=== PATIENT | female | born 1955 | race Caucasian/White ===

== ENCOUNTER → 2018-10-05 15:26 | Outpatient (CLI) | payer MEDICARE, BC, SELFPAY ==
--- NOTE | 2018-10-05 15:28 | DI.RAD.S_ITS ---
PROCEDURE: XR ANKLE RT MIN 3V INDICATIONS: ankle pain TECHNIQUE: 3 views of the ankle were acquired. COMPARISON: None. FINDINGS: Bones: Subtle cortical irregularity involving the tip of lateral malleolus is seen, which may represent age-indeterminate avulsion injury. No other fracture or dislocation is seen. Ankle mortise is normally aligned. No suspicious bony lesions. Well-defined plantar calcaneal enthesophyte is seen. Soft tissues: There is soft tissue swelling over lateral malleolus No tibiotalar joint effusion. Achilles tendon appears normal. IMPRESSION: Lateral ankle soft tissue swelling and age-indeterminate avulsion injury involving tip of lateral malleolus. No other fracture or dislocation. Dictated by: Eliud Chicas M.D. on 10/05/2018 at 15:47 Approved by: Eliud Chicas M.D. on 10/05/2018 at 15:49
== END ==
PROVIDERS: Visit Provider Physician Assistant
DX: M25.571 Pain in right ankle and joints of right foot (principal); M79.89 Other specified soft tissue disorders; S99.811A Other specified injuries of right ankle, initial encounter
CPT/HCPCS: 73610

== ENCOUNTER 2019-01-16 09:45 | Outpatient (RCR) | payer MEDICARE, BC, SELFPAY ==
--- NOTE | 2019-01-01 15:25 | PT.OIE ---
Current Diagnoses Unspecified osteoarthritis, unspecified site (01/01/19) Unsteadiness on feet (01/01/19) Other fracture of right lower leg, initial encounter for closed fracture (01/01/19) Sprain of unspecified ligament of right ankle, initial encounter (01/01/19) Past Medical History (Last Updated 12/10/18 @ 18:31 by Emeli Roman) Abnormal Pap smear of cervix (Chronic ~1975) Ankle pain (Chronic) Hearing loss (Chronic ~2011) Hip pain (Chronic) Knee pain (Chronic) Retinoschisis (Chronic ~2007) Tinnitus (Chronic) Chicken pox (Resolved ~1957) Measles (Resolved ~1957) Past Surgical History (Last Updated 12/10/18 @ 18:31 by Emeli Roman) Anesthesia (Resolved) History of section (Resolved ~1986) History of strabismus surgery (Resolved ~1957) Status post laparoscopic surgery (Resolved ~2012) Provider Visit Care Team Role Provider Type Shae Mckeon DO Attending Provider Physician Primary Care Provider Specialty: Family Practice Address: [address] [place] [address] Email: [email or web address] Physical Therapy Initial Evaluation PT-OP-A Visit Information Start: 12/28/18 16:47 Freq: Status: Active Protocol: Document 01/01/19 09:51 LRN (Rec: 01/01/19 10:25 LRN [id number]) Out-Patient Physical Therapy Visit Information Visit Information Visit Type Initial Evaluation Visit Start Time 09:51 Visit Stop Time 10:38 Total Visit Minutes 47 Visit Number 1 Number of SCREW DOWN Visits 0 Evaluation Information Evaluation Date 01/01/19 PT-OP-B Current Condition Start: 12/28/18 16:47 Freq: Status: Active Protocol: Document 01/01/19 09:51 LRN (Rec: 01/01/19 10:25 LRN [id number]) Current Condition History of Current Condition Onset Date 3 months ago Current Complaints Constant pain in the R lateral ankle joint, superior, inferior & anterior. History of Current Condition Fx'd R ankle 1999 and severely sprained the other ankle in ~ 2004. Her current condition occurred in Sep when she walked into a pothole wearing clogs. Her ankle hurt and swelled, but she waited a couple weeks before going to urgent care. X-rays taken was inconclusive as to what was the old injury and what was the new injury. Currently her pain is constant in the lateral R ankle anterior and inferior to the ankle joint. Prior Treatments and Tests Physical therapy, returned to baseline. Doing walking, pilates, yoga. Some knees and hips hurt limits activity. Developmental History Developmental History Moved from [facility] ([place], [place]) recently. Treatment Goals Patient/Caregiver Goals Pt goal is be able to return to baseline of: walking 10,000 steps a day (4-5 miles) without being in a lot of pain later. And to be able to manage the pain and do more biking (1-2 miles). Prior Functional Status Baseline Function- ADL's Independent Baseline Function- Mobility Independent Baseline Function- Gait 2 mile walks, [place]. Baseline Function- Recreation/Hobbies Biking. Current Functional Impairments (Reported) Functional Limitations- ADL's Feeling unsteady getting in/ out of tub. Functional Limitations- Mobility/Gait Limited in walking tolerance. Functional Limitations- Recreation/ Limited in walking for Hobbies exercise, biking. Personal Factors Other Personal Factors That May Effect R rib pain with turning wrong, Therapy/Recovery and bilateral knee pain from arthritis. PT-OP-C Subjective Start: 12/28/18 16:47 Freq: Status: Active Protocol: Document 01/01/19 09:51 LRN (Rec: 01/01/19 15:36 LRN [id number]) Patient Questionnaires Foot & Ankle Ability Measure- ADL and Sports FAAM-ADL Score 77 FAAM-ADL Impairment 1 to 19% Impaired (Score 67-83 ) Lower Extremity Functional Scale LEFS Score 67 LEFS Impairment 1 to 19% Impaired (Score 63-79 ) OP-PT Pain Assessment Location Bilateral Knee Pain Location Details Anterior knees Intensity 5 Scale Used Numeric (1 - 10) Right Upper Lateral Ankle Pain Location Details Superior aspect of R lateral malleoli Intensity 4 Scale Used Numeric (1 - 10) Description Aching Frequency Constant Pain Aggravating Factors Exercise Walking Pain Alleviating Factors Rest PT-OP-D Balance Start: 12/28/18 16:47 Freq: Status: Active Protocol: Document 01/01/19 09:51 LRN (Rec: 01/01/19 15:36 LRN [id number]) Balance Tests Single Limb Standing Single Limb- Right 15 Single Limb- Left 7 Tandem Tandem Standing 36 sec's w/L foot behind, 38 sec's w/R foot behind PT-OP-E Functional Tests Start: 12/28/18 16:47 Freq: Status: Active Protocol: Document 01/01/19 09:51 LRN (Rec: 01/01/19 15:36 LRN [id number]) Functional Tests Timed Up and Go (TUG) Score 9 Comments No instability noted. TUG Impairment Rating 0% Impaired (Score 10) PT-OP-F Manual Assessment Start: 12/28/18 16:47 Freq: Status: Active Protocol: Document 01/01/19 09:51 LRN (Rec: 01/01/19 15:36 LRN [id number]) Manual Assessments Soft Tissue Assessment Soft Tissue Mobility Assessment Ankles: Swelling in the lateral R ankle inferiorly and anteriorly. Joint Mobility Assessment Joint Mobility Assessment Ankles: Normal PT-OP-J Posture/Palpation/Skin Start: 12/28/18 16:47 Freq: Status: Active Protocol: Document 01/01/19 09:51 LRN (Rec: 01/01/19 15:36 LRN [id number]) Posture Evaluation Comments Posture Comments Standing: Decreased plantar arch on R with RLE held in mild ER. Valgus of knee bilaterally. R shoulder and scapular are low. Head is tilted left. Increased Lordosis and Dowagers hump. Palpation Assessment Location R ankle Palpation Location Lateral R ankle Palpation Findings Edema Tenderness Palpation Details Tenderness in the Anterior Talofibular ligament and Tibiofibular ligament. PT-OP-K Range of Motion Start: 12/28/18 16:47 Freq: Status: Active Protocol: Document 01/01/19 09:51 LRN (Rec: 01/01/19 15:36 LRN [id number]) Knee Goniometric Range of Motion Knee Measured in Degrees Right Knee ROM WFL Yes Patient Position Sitting Left Knee ROM WFL Yes Patient Position Sitting Ankle and Foot Goniometric Range of Motion Ankle and Foot Measured in Degrees Right Active Testing Position Supine Dorsiflexion with Knee Extended 5 Plantarflexion 48 Inversion 31 Eversion 12 Left Active Ankle/Foot ROM WFL Yes Dorsiflexion with Knee Extended 7 Plantarflexion 52 Inversion 40 Eversion 12 PT-OP-M Strength Start: 12/28/18 16:47 Freq: Status: Active Protocol: Document 01/01/19 09:51 LRN (Rec: 01/01/19 15:36 LRN [id number]) Knee Strength Knee Manual Muscle Testing Right Reason Not Measured WFL Left Reason Not Measured WFL Ankle/Foot Strength Ankle and Foot Manual Muscle Testing Right Reason Not Measured WFL Comments Toe strength is WNL. Left Reason Not Measured WFL Comments Toe strength is WNL. PT-OP-Q Treatments Start: 12/28/18 16:47 Freq: Status: Active Protocol: Document 01/01/19 09:51 LRN (Rec: 01/01/19 15:36 LRN [id number]) Self-Care/Home Management Treatment Education Patient Education Home Exercise Program Other Education Discussed edema management with use of compression and cold packs. Activities Self-Care/Home Management Activities Issued and briefly reviewed HEP: ankle ex's of PF/DF T- Band ex's, IV/EV with ball ex' s. PT-OP-T Assessment and Plan Start: 12/28/18 16:47 Freq: Status: Active Protocol: Document 01/01/19 09:51 LRN (Rec: 01/01/19 15:36 LRN [id number]) Physical Therapy Assessment Rehab Potential Rehabilitation Potential Excellent Evaluation Complexity Number of Personal Factors/Comorbidities 1-2 Number of Body Systems Impaired 3 Clinical Presentation at Evaluation Stable Impairments Impairments Activity Tolerance Edema Pain ROM Soft Tissue Mobility Other Concerns Age Related Concerns Recent move to area. Goals Three Impairment Decreased balance (SLS: 15 sec 's left, 7 sec's right) Radiator Core Tester Goal (LTG) Pt will be able to get in/out of the bathtub without fear of falling. LTG Duration 03/05/19 Two Impairment Pain w/walking, limiting baseline of walking 4-5 miles. Short Term Goal (STG) Pt will be able to walk without pain. STG Duration 02/02/19 Custodial Goal (LTG) Pt will be able to walk the 2 -3 miles and educated in progression to return to baseline (3-4 miles walking) activity level. LTG Duration 03/05/19 One Impairment Lacks Self care program. Custodial Goal (LTG) Pt will be independent in a self care HEP. LTG Duration 4/29/19 Assessment Summary Assessment Pt presents with soft tissue and mechanical dysfunction of the R ankle due to swelling, probable ligament sprain of the Anterior Talofibular Ligament and Anterior Tibiofibular Ligament and possible avulsion injury to the tip of the lateral malleolus per X-ray. Her bilateral knee pain may be arthritic in nature with pain with mobility. Strengthening of the R ankle and bilateral knee joints will help to provide stability and decreased pain. The pt will benefit from skilled physical therapy to normalized soft tissue dysfunction and improve pt's R ankle mobility and stability/endurance with gait. Physical Therapy Plan Frequency and Duration Frequency of Treatment 2x/Week Plan of Care Start Date 01/01/19 Plan of Care End Date 03/05/19 Therapeutic Interventions Therapeutic Interventions Balance Training Home Exercise Program Manual Therapy Neuromuscular Re-education Patient/Caregiver Education Self-Care/Home Management Soft Tissue Mobilization Taping Therapeutic Activities Therapeutic Exercises Modalities Cold Pack/Ice Massage Electric Stimulation Hot Packs Iontophoresis Ultrasound Other Therapeutic Interventions Iontophoresis: 4 mg/mL Dexamethasone with Sodium Phosphate. Next Visit Focus/Plan Next Note Type Treatment Note Next Visit Plan Review HEP issued. Check bilateral knee stability/ mobility and start strengthening ex's. General conditioning of the LE's to improve endurance and promote strengthening for biking. Assess gait and start ankle balance ex's. End with modalities for swelling and pain. Recommend use of ROBERTO wrap or brace if the pt has not yet obtained an ankle support.
--- NOTE | 2019-01-01 15:25 | PT.OPPOC ---
Current Diagnoses Unspecified osteoarthritis, unspecified site (01/01/19) Unsteadiness on feet (01/01/19) Other fracture of right lower leg, initial encounter for closed fracture (01/01/19) Sprain of unspecified ligament of right ankle, initial encounter (01/01/19) Provider Visit Care Team Role Provider Type Shae Mckeon DO Attending Provider Physician Primary Care Provider Specialty: Family Practice Address: [address] [place] [address], [employer] Email: [email or web address] Plan Of Care PT-OP-T Assessment and Plan Start: 12/28/18 16:47 Freq: Status: Active Protocol: Document 01/01/19 09:51 LRN (Rec: 01/01/19 15:36 LRN [id number]) Physical Therapy Assessment Rehab Potential Rehabilitation Potential Excellent Evaluation Complexity Number of Personal Factors/Comorbidities 1-2 Number of Body Systems Impaired 3 Clinical Presentation at Evaluation Stable Impairments Impairments Activity Tolerance Edema Pain ROM Soft Tissue Mobility Other Concerns Age Related Concerns Recent move to [facility]. Goals Three Impairment Decreased balance (SLS: 15 sec 's left, 7 sec's right) Snf Goal (LTG) Pt will be able to get in/out of the bathtub without fear of falling. LTG Duration 03/05/19 Two Impairment Pain w/walking, limiting baseline of walking 4-5 miles. Short Term Goal (STG) Pt will be able to walk without pain. STG Duration 02/02/19 Snf Goal (LTG) Pt will be able to walk the 2 -3 miles and educated in progression to return to baseline (3-4 miles walking) activity level. LTG Duration 03/05/19 One Impairment Lacks Self care program. Power Hammer Operator Goal (LTG) Pt will be independent in a self care HEP. LTG Duration 03/05/19 Assessment Summary Assessment Pt presents with soft tissue and mechanical dysfunction of the R ankle due to swelling, probable ligament sprain of the Anterior Talofibular Ligament and Anterior Tibiofibular Ligament and possible avulsion injury to the tip of the lateral malleolus per X-ray. Her bilateral knee pain may be arthritic in nature with pain with mobility. Strengthening of the R ankle and bilateral knee joints will help to provide stability and decreased pain. The pt will benefit from skilled physical therapy to normalized soft tissue dysfunction and improve pt's R ankle mobility and stability/endurance with gait. Physical Therapy Plan Frequency and Duration Frequency of Treatment 2x/Week Plan of Care Start Date 01/01/19 Plan of Care End Date 03/05/19 Therapeutic Interventions Therapeutic Interventions Balance Training Home Exercise Program Manual Therapy Neuromuscular Re-education Patient/Caregiver Education Self-Care/Home Management Soft Tissue Mobilization Taping Therapeutic Activities Therapeutic Exercises Modalities Cold Pack/Ice Massage Electric Stimulation Hot Packs Iontophoresis Ultrasound Other Therapeutic Interventions Iontophoresis: 4 mg/mL Dexamethasone with Sodium Phosphate. Next Visit Focus/Plan Next Note Type Treatment Note Next Visit Plan Review HEP issued. Check bilateral knee stability/ mobility and start strengthening ex's. General conditioning of the LE's to improve endurance and promote strengthening for biking. Assess gait and start ankle balance ex's. End with modalities for swelling and pain. Recommend use of ROBERTO wrap or brace if the pt has not yet obtained an ankle support. Plan of Care Dates Plan of Care Start Date 01/01/19 Plan of Care End Date 03/05/19 Please Sign and Return: I have reviewed this Plan of Care and certify that the skilled therapy services above are required to meet the patient?s needs. Physician Signature Date Printed Name and Credentials Clinical Instructor Signature Printed Name and Credentials
--- NOTE | 2019-01-02 15:24 | PT.OIE ---
Current Diagnoses Unspecified osteoarthritis, unspecified site (01/01/19) Unsteadiness on feet (01/01/19) Other fracture of right lower leg, initial encounter for closed fracture (01/01/19) Sprain of unspecified ligament of right ankle, initial encounter (01/01/19) Past Medical History (Last Updated 12/10/18 @ 18:31 by Emeli Roman) Abnormal Pap smear of cervix (Chronic ~1975) Ankle pain (Chronic) Hearing loss (Chronic ~2011) Hip pain (Chronic) Knee pain (Chronic) Retinoschisis (Chronic ~2007) Tinnitus (Chronic) Chicken pox (Resolved ~1957) Measles (Resolved ~1957) Past Surgical History (Last Updated 12/10/18 @ 18:31 by Emeli Roman) Anesthesia (Resolved) History of section (Resolved ~1986) History of strabismus surgery (Resolved ~1957) Status post laparoscopic surgery (Resolved ~2012) Provider Visit Care Team Role Provider Type Shae Mckeon DO Attending Provider Physician Primary Care Provider Specialty: Family Practice Address: [address] [place] [address] Email: [email or web address] Physical Therapy Initial Evaluation PT-OP-A Visit Information Start: 12/28/18 16:47 Freq: Status: Active Protocol: Document 01/01/19 09:51 LRN (Rec: 01/01/19 10:25 LRN [id number]) Out-Patient Physical Therapy Visit Information Visit Information Visit Type Initial Evaluation Visit Start Time 09:51 Visit Stop Time 10:38 Total Visit Minutes 47 Visit Number 1 Number of GROUP ROOMS COORDINATOR Visits 0 Evaluation Information Evaluation Date 01/01/19 PT-OP-B Current Condition Start: 12/28/18 16:47 Freq: Status: Active Protocol: Document 01/01/19 09:51 LRN (Rec: 01/01/19 10:25 LRN [id number]) Current Condition History of Current Condition Onset Date 3 months ago Current Complaints Constant pain in the R lateral ankle joint, superior, inferior & anterior. History of Current Condition Fx'd R ankle 1999 and severely sprained the other ankle in ~ 2004. Her current condition occurred in Sep when she walked into a pothole wearing clogs. Her ankle hurt and swelled, but she waited a couple weeks before going to urgent care. X-rays taken was inconclusive as to what was the old injury and what was the new injury. Currently her pain is constant in the lateral R ankle anterior and inferior to the ankle joint. Prior Treatments and Tests Physical therapy, returned to baseline. Doing walking, pilates, yoga. Some knees and hips hurt limits activity. Developmental History Developmental History Moved from [facility] ([place], [place]) recently. Treatment Goals Patient/Caregiver Goals Pt goal is be able to return to baseline of: walking 10,000 steps a day (4-5 miles) without being in a lot of pain later. And to be able to manage the pain and do more biking (1-2 miles). Prior Functional Status Baseline Function- ADL's Independent Baseline Function- Mobility Independent Baseline Function- Gait 2 mile walks, [place]. Baseline Function- Recreation/Hobbies Biking. Current Functional Impairments (Reported) Functional Limitations- ADL's Feeling unsteady getting in/ out of tub. Functional Limitations- Mobility/Gait Limited in walking tolerance. Functional Limitations- Recreation/ Limited in walking for Hobbies exercise, biking. Personal Factors Other Personal Factors That May Effect R rib pain with turning wrong, Therapy/Recovery and bilateral knee pain from arthritis. PT-OP-C Subjective Start: 12/28/18 16:47 Freq: Status: Active Protocol: Document 01/01/19 09:51 LRN (Rec: 01/01/19 15:36 LRN [id number]) Patient Questionnaires Foot & Ankle Ability Measure- ADL and Sports FAAM-ADL Score 77 FAAM-ADL Impairment 1 to 19% Impaired (Score 67-83 ) Lower Extremity Functional Scale LEFS Score 67 LEFS Impairment 1 to 19% Impaired (Score 63-79 ) OP-PT Pain Assessment Location Bilateral Knee Pain Location Details Anterior knees Intensity 5 Scale Used Numeric (1 - 10) Right Upper Lateral Ankle Pain Location Details Superior aspect of R lateral malleoli Intensity 4 Scale Used Numeric (1 - 10) Description Aching Frequency Constant Pain Aggravating Factors Exercise Walking Pain Alleviating Factors Rest PT-OP-D Balance Start: 12/28/18 16:47 Freq: Status: Active Protocol: Document 01/01/19 09:51 LRN (Rec: 01/01/19 15:36 LRN [id number]) Balance Tests Single Limb Standing Single Limb- Right 15 Single Limb- Left 7 Tandem Tandem Standing 36 sec's w/L foot behind, 38 sec's w/R foot behind PT-OP-E Functional Tests Start: 12/28/18 16:47 Freq: Status: Active Protocol: Document 01/01/19 09:51 LRN (Rec: 01/01/19 15:36 LRN [id number]) Functional Tests Timed Up and Go (TUG) Score 9 Comments No instability noted. TUG Impairment Rating 0% Impaired (Score 10) PT-OP-F Manual Assessment Start: 12/28/18 16:47 Freq: Status: Active Protocol: Document 01/01/19 09:51 LRN (Rec: 01/01/19 15:36 LRN [id number]) Manual Assessments Soft Tissue Assessment Soft Tissue Mobility Assessment Ankles: Swelling in the lateral R ankle inferiorly and anteriorly. Joint Mobility Assessment Joint Mobility Assessment Ankles: Normal PT-OP-J Posture/Palpation/Skin Start: 12/28/18 16:47 Freq: Status: Active Protocol: Document 01/01/19 09:51 LRN (Rec: 01/01/19 15:36 LRN [id number]) Posture Evaluation Comments Posture Comments Standing: Decreased plantar arch on R with RLE held in mild ER. Valgus of knee bilaterally. R shoulder and scapular are low. Head is tilted left. Increased Lordosis and Dowagers hump. Palpation Assessment Location R ankle Palpation Location Lateral R ankle Palpation Findings Edema Tenderness Palpation Details Tenderness in the Anterior Talofibular ligament and Tibiofibular ligament. PT-OP-K Range of Motion Start: 12/28/18 16:47 Freq: Status: Active Protocol: Document 01/01/19 09:51 LRN (Rec: 01/01/19 15:36 LRN [id number]) Knee Goniometric Range of Motion Knee Measured in Degrees Right Knee ROM WFL Yes Patient Position Sitting Left Knee ROM WFL Yes Patient Position Sitting Ankle and Foot Goniometric Range of Motion Ankle and Foot Measured in Degrees Right Active Testing Position Supine Dorsiflexion with Knee Extended 5 Plantarflexion 48 Inversion 31 Eversion 12 Left Active Ankle/Foot ROM WFL Yes Dorsiflexion with Knee Extended 7 Plantarflexion 52 Inversion 40 Eversion 12 PT-OP-M Strength Start: 12/28/18 16:47 Freq: Status: Active Protocol: Document 01/01/19 09:51 LRN (Rec: 01/01/19 15:36 LRN [id number]) Knee Strength Knee Manual Muscle Testing Right Reason Not Measured WFL Left Reason Not Measured WFL Ankle/Foot Strength Ankle and Foot Manual Muscle Testing Right Reason Not Measured WFL Comments Toe strength is WNL. Left Reason Not Measured WFL Comments Toe strength is WNL. PT-OP-Q Treatments Start: 12/28/18 16:47 Freq: Status: Active Protocol: Document 01/01/19 09:51 LRN (Rec: 01/01/19 15:36 LRN [id number]) Self-Care/Home Management Treatment Education Patient Education Home Exercise Program Other Education Discussed edema management with use of compression and cold packs. Activities Self-Care/Home Management Activities Issued and briefly reviewed HEP: ankle ex's of PF/DF T- Band ex's, IV/EV with ball ex' s. PT-OP-T Assessment and Plan Start: 12/28/18 16:47 Freq: Status: Active Protocol: Document 01/01/19 09:51 LRN (Rec: 01/01/19 15:36 LRN [id number]) Physical Therapy Assessment Rehab Potential Rehabilitation Potential Excellent Evaluation Complexity Number of Personal Factors/Comorbidities 1-2 Number of Body Systems Impaired 3 Clinical Presentation at Evaluation Stable Impairments Impairments Activity Tolerance Edema Pain ROM Soft Tissue Mobility Other Concerns Age Related Concerns Recent move to area. Goals Three Impairment Decreased balance (SLS: 15 sec 's left, 7 sec's right) Air Dispatcher Goal (LTG) Pt will be able to get in/out of the bathtub without fear of falling. LTG Duration 03/05/19 Two Impairment Pain w/walking, limiting baseline of walking 4-5 miles. Short Term Goal (STG) Pt will be able to walk without pain. STG Duration 02/02/19 [facility] Goal (LTG) Pt will be able to walk the 2 -3 miles and educated in progression to return to baseline (3-4 miles walking) activity level. LTG Duration 03/05/19 One Impairment Lacks Self care program. Chcf Goal (LTG) Pt will be independent in a self care HEP. LTG Duration 4/29/19 Assessment Summary Assessment Pt presents with soft tissue and mechanical dysfunction of the R ankle due to swelling, probable ligament sprain of the Anterior Talofibular Ligament and Anterior Tibiofibular Ligament and possible avulsion injury to the tip of the lateral malleolus per X-ray. Her bilateral knee pain may be arthritic in nature with pain with mobility. Strengthening of the R ankle and bilateral knee joints will help to provide stability and decreased pain. The pt will benefit from skilled physical therapy to normalized soft tissue dysfunction and improve pt's R ankle mobility and stability/endurance with gait. Physical Therapy Plan Frequency and Duration Frequency of Treatment 2x/Week Plan of Care Start Date 01/01/19 Plan of Care End Date 03/05/19 Therapeutic Interventions Therapeutic Interventions Balance Training Home Exercise Program Manual Therapy Neuromuscular Re-education Patient/Caregiver Education Self-Care/Home Management Soft Tissue Mobilization Taping Therapeutic Activities Therapeutic Exercises Modalities Cold Pack/Ice Massage Electric Stimulation Hot Packs Iontophoresis Ultrasound Other Therapeutic Interventions Iontophoresis: 4 mg/mL Dexamethasone with Sodium Phosphate. Next Visit Focus/Plan Next Note Type Treatment Note Next Visit Plan Review HEP issued. Check bilateral knee stability/ mobility and start strengthening ex's. General conditioning of the LE's to improve endurance and promote strengthening for biking. Assess gait and start ankle balance ex's. End with modalities for swelling and pain. Recommend use of ROBERTO wrap or brace if the pt has not yet obtained an ankle support.
--- NOTE | 2019-01-05 12:41 | PT.OTN ---
Current Diagnoses Unspecified osteoarthritis, unspecified site (01/05/19) Other fracture of right lower leg, initial encounter for closed fracture (01/05/19) Physical Therapy Treatment Note PT-OP-A Visit Information Start: 12/28/18 16:47 Freq: Status: Active Protocol: Document 01/05/19 10:30 LRN (Rec: 01/05/19 11:14 LRN [id number]) Out-Patient Physical Therapy Visit Information Visit Information Visit Type Treatment Note Visit Start Time 10:30 Visit Stop Time 11:22 Total Visit Minutes 52 Visit Number 2 Number of AGING ROOM OPERATOR Visits 0 Evaluation Information Evaluation Date 01/01/19 PT-OP-B Current Condition Start: 12/28/18 16:47 Freq: Status: Active Protocol: Document 01/01/19 09:51 LRN (Rec: 01/01/19 10:25 LRN [id number]) Current Condition History of Current Condition Onset Date 3 months ago Current Complaints Constant pain in the R lateral ankle joint, superior, inferior & anterior. History of Current Condition Fx'd R ankle 1999 and severely sprained the other ankle in ~ 2004. Her current condition occurred in Sep when she walked into a pothole wearing clogs. Her ankle hurt and swelled, but she waited a couple weeks before going to urgent care. X-rays taken was inconclusive as to what was the old injury and what was the new injury. Currently her pain is constant in the lateral R ankle anterior and inferior to the ankle joint. Prior Treatments and Tests Physical therapy, returned to baseline. Doing walking, pilates, yoga. Some knees and hips hurt limits activity. Developmental History Developmental History Moved from [facility] ([place], [place]) recently. Treatment Goals Patient/Caregiver Goals Pt goal is be able to return to baseline of: walking 10,000 steps a day (4-5 miles) without being in a lot of pain later. And to be able to manage the pain and do more biking (1-2 miles). Prior Functional Status Baseline Function- ADL's Independent Baseline Function- Mobility Independent Baseline Function- Gait 2 mile walks, [place]. Baseline Function- Recreation/Hobbies Biking. Current Functional Impairments (Reported) Functional Limitations- ADL's Feeling unsteady getting in/ out of tub. Functional Limitations- Mobility/Gait Limited in walking tolerance. Functional Limitations- Recreation/ Limited in walking for Hobbies exercise, biking. Personal Factors Other Personal Factors That May Effect R rib pain with turning wrong, Therapy/Recovery and bilateral knee pain from arthritis. PT-OP-C Subjective Start: 12/28/18 16:47 Freq: Status: Active Protocol: Document 01/05/19 10:30 LRN (Rec: 01/05/19 11:14 LRN [id number]) OP-PT Subjective Patient Comments Patient Comments Walked to therapy, took 15', therefore knees are not feeling so good. Leaving for [place] for a week, has questions regarding use of ankle brace. PT-OP-D Balance Start: 12/28/18 16:47 Freq: Status: Active Protocol: Document 01/01/19 09:51 LRN (Rec: 01/01/19 15:36 LRN [id number]) Balance Tests Single Limb Standing Single Limb- Right 15 Single Limb- Left 7 Tandem Tandem Standing 36 sec's w/L foot behind, 38 sec's w/R foot behind PT-OP-E Functional Tests Start: 12/28/18 16:47 Freq: Status: Active Protocol: Document 01/01/19 09:51 LRN (Rec: 01/01/19 15:36 LRN [id number]) Functional Tests Timed Up and Go (TUG) Score 9 Comments No instability noted. TUG Impairment Rating 0% Impaired (Score 10) PT-OP-F Manual Assessment Start: 12/28/18 16:47 Freq: Status: Active Protocol: Document 01/01/19 09:51 LRN (Rec: 01/01/19 15:36 LRN [id number]) Manual Assessments Soft Tissue Assessment Soft Tissue Mobility Assessment Ankles: Swelling in the lateral R ankle inferiorly and anteriorly. Joint Mobility Assessment Joint Mobility Assessment Ankles: Normal PT-OP-J Posture/Palpation/Skin Start: 12/28/18 16:47 Freq: Status: Active Protocol: Document 01/01/19 09:51 LRN (Rec: 01/01/19 15:36 LRN [id number]) Posture Evaluation Comments Posture Comments Standing: Decreased plantar arch on R with RLE held in mild ER. Valgus of knee bilaterally. R shoulder and scapular are low. Head is tilted left. Increased Lordosis and Dowagers hump. Palpation Assessment Location R ankle Palpation Location Lateral R ankle Palpation Findings Edema Tenderness Palpation Details Tenderness in the Anterior Talofibular ligament and Tibiofibular ligament. PT-OP-K Range of Motion Start: 12/28/18 16:47 Freq: Status: Active Protocol: Document 01/01/19 09:51 LRN (Rec: 01/01/19 15:36 LRN [id number]) Knee Goniometric Range of Motion Knee Measured in Degrees Right Knee ROM WFL Yes Patient Position Sitting Left Knee ROM WFL Yes Patient Position Sitting Ankle and Foot Goniometric Range of Motion Ankle and Foot Measured in Degrees Right Active Testing Position Supine Dorsiflexion with Knee Extended 5 Plantarflexion 48 Inversion 31 Eversion 12 Left Active Ankle/Foot ROM WFL Yes Dorsiflexion with Knee Extended 7 Plantarflexion 52 Inversion 40 Eversion 12 PT-OP-M Strength Start: 12/28/18 16:47 Freq: Status: Active Protocol: Document 01/01/19 09:51 LRN (Rec: 01/01/19 15:36 LRN [id number]) Knee Strength Knee Manual Muscle Testing Right Reason Not Measured WFL Left Reason Not Measured WFL Ankle/Foot Strength Ankle and Foot Manual Muscle Testing Right Reason Not Measured WFL Comments Toe strength is WNL. Left Reason Not Measured WFL Comments Toe strength is WNL. PT-OP-Q Treatments Start: 12/28/18 16:47 Freq: Status: Active Protocol: Document 01/05/19 10:30 LRN (Rec: 01/05/19 11:14 LRN [id number]) Cardio Equipment Recumbent Elliptical (Biodex) Duration (Minutes) 6 Resistance 3 Seat Position 8 Recumbent Bicycle Duration (Minutes) 4 Resistance 3 Seat Position 3 Gym Equipment Shuttle Recovery Unilateral Heel Raises Resistance 25 Shuttle Recovery Platform Stable Reps/Time 10x3 Unilateral Squats Resistance 25 Shuttle Recovery Platform Stable Reps/Time 10x3 Bilateral Squats Details R Ankle tolerable stretch into DF Resistance 50 Shuttle Recovery Platform Stable Reps/Time 10x3 Shuttle Balance R SLS Details On Yellow supports Comments Held due to time constraints Therapeutic Exercises Sitting Exercises Isometric Holds Sitting Exercise Name EV, IV Side right Equipment Used Ball Reps/Minutes 10x each, 4 sec hold Ankle strengthening w/T-Band Sitting Exercise Name PF, DF, EV, IV Side right Resistance Lev 2 Equipment Used T-band Reps/Minutes 30x each PT-OP-R Modalities Start: 12/28/18 16:47 Freq: Status: Active Protocol: Document 01/05/19 10:30 LRN (Rec: 01/05/19 11:14 LRN [id number]) Hot Pack/Cold Pack Treatment Cryocuff Location R ankle Patient Position Supine Treatment Duration (minutes) 10 PT-OP-T Assessment and Plan Start: 12/28/18 16:47 Freq: Status: Active Protocol: Document 01/05/19 10:30 LRN (Rec: 01/05/19 11:14 LRN [id number]) Physical Therapy Assessment Goals Three Impairment Decreased balance (SLS: 15 sec 's left, 7 sec's right) Long-Term Goal (LTG) Pt will be able to get in/out of the bathtub without fear of falling. LTG Duration 03/05/19 Two Impairment Pain w/walking, limiting baseline of walking 4-5 miles. Short Term Goal (STG) Pt will be able to walk without pain. STG Duration 02/02/19 Ethanol Maintenance Mechanic Goal (LTG) Pt will be able to walk the 2 -3 miles and educated in progression to return to baseline (3-4 miles walking) activity level. LTG Duration 03/05/19 One Impairment Lacks Self care program. Long-Term Goal (LTG) Pt will be independent in a self care HEP. LTG Duration 03/05/19 Progress Towards Goals Progress Towards Goals Progressing Toward Goals Assessment Summary Assessment Pt with soft tissue and mechanical dysfunction of the R ankle due to swelling, probable ligament sprain of the Anterior Talofibular Ligament and Anterior Tibiofibular Ligament and possible avulsion injury to the tip of the lateral malleolus per X-ray. Her bilateral knee pain may be arthritic in nature limiting ex tolerance somewhat. Pt appears to have a good understanding of her HEP. Physical Therapy Plan Frequency and Duration Frequency of Treatment 2x/Week Plan of Care Start Date 01/01/19 Plan of Care End Date 03/05/19 Next Visit Focus/Plan Next Note Type Treatment Note Next Visit Plan Check gait & bilateral knee ( stability/mobility). Progress general conditioning of the LE's to improve endurance and promote strengthening for biking. Try Ultrasound for swelling and pain. Add Balance ex's. Pt reports having a wrap for ankle support, will check support on her return from her vacation.
--- NOTE | 2019-01-16 17:28 | PT.OTN ---
Current Diagnoses Unspecified osteoarthritis, unspecified site (01/16/19) Other fracture of right lower leg, initial encounter for closed fracture (01/16/19) Physical Therapy Treatment Note PT-OP-A Visit Information Start: 12/28/18 16:47 Freq: Status: Active Protocol: Document 01/16/19 09:54 LRN (Rec: 01/16/19 10:31 LRN [id number]) Out-Patient Physical Therapy Visit Information Visit Information Visit Type Discharge Summary Visit Start Time 09:54 Visit Stop Time 10:33 Total Visit Minutes 39 Visit Number 3 Number of INFORMATION SECURITY ANALYST Visits 0 Evaluation Information Evaluation Date 01/01/19 PT-OP-B Current Condition Start: 12/28/18 16:47 Freq: Status: Active Protocol: Document 01/01/19 09:51 LRN (Rec: 01/01/19 10:25 LRN [id number]) Current Condition History of Current Condition Onset Date 3 months ago Current Complaints Constant pain in the R lateral ankle joint, superior, inferior & anterior. History of Current Condition Fx'd R ankle 1999 and severely sprained the other ankle in ~ 2004. Her current condition occurred in Sep when she walked into a pothole wearing clogs. Her ankle hurt and swelled, but she waited a couple weeks before going to urgent care. X-rays taken was inconclusive as to what was the old injury and what was the new injury. Currently her pain is constant in the lateral R ankle anterior and inferior to the ankle joint. Prior Treatments and Tests Physical therapy, returned to baseline. Doing walking, pilates, yoga. Some knees and hips hurt limits activity. Developmental History Developmental History Moved from [facility] ([place], [place]) recently. Treatment Goals Patient/Caregiver Goals Pt goal is be able to return to baseline of: walking 10,000 steps a day (4-5 miles) without being in a lot of pain later. And to be able to manage the pain and do more biking (1-2 miles). Prior Functional Status Baseline Function- ADL's Independent Baseline Function- Mobility Independent Baseline Function- Gait 2 mile walks, [place]. Baseline Function- Recreation/Hobbies Biking. Current Functional Impairments (Reported) Functional Limitations- ADL's Feeling unsteady getting in/ out of tub. Functional Limitations- Mobility/Gait Limited in walking tolerance. Functional Limitations- Recreation/ Limited in walking for Hobbies exercise, biking. Personal Factors Other Personal Factors That May Effect R rib pain with turning wrong, Therapy/Recovery and bilateral knee pain from arthritis. PT-OP-C Subjective Start: 12/28/18 16:47 Freq: Status: Active Protocol: Document 01/16/19 09:54 LRN (Rec: 01/16/19 10:31 LRN [id number]) OP-PT Subjective Patient Comments Patient Comments Did a lot of walking in [place] and R ankle hurt some of the time but knees hurt all of the time. Had trouble going [place]. Ankle pain was 4/10 after walking 8 miles in a day. Knees were worse. Today no ankle pain. States she can walk 3-4 miles without pain. Pain onset is later. States she has a way to get into the bathtub to shower without fear of falling. Feels she is ready for DC, has returned to baseline level of function. Patient Questionnaires Foot & Ankle Ability Measure- ADL and Sports FAAM-ADL Score 82 FAAM-ADL Impairment 1 to 19% Impaired (Score 67-83 ) Lower Extremity Functional Scale LEFS Score 67 LEFS Impairment 1 to 19% Impaired (Score 63-79 ) PT-OP-D Balance Start: 12/28/18 16:47 Freq: Status: Active Protocol: Document 01/01/19 09:51 LRN (Rec: 01/01/19 15:36 LRN [id number]) Balance Tests Single Limb Standing Single Limb- Right 15 Single Limb- Left 7 Tandem Tandem Standing 36 sec's w/L foot behind, 38 sec's w/R foot behind PT-OP-E Functional Tests Start: 12/28/18 16:47 Freq: Status: Active Protocol: Document 01/01/19 09:51 LRN (Rec: 01/01/19 15:36 LRN [id number]) Functional Tests Timed Up and Go (TUG) Score 9 Comments No instability noted. TUG Impairment Rating 0% Impaired (Score 10) PT-OP-F Manual Assessment Start: 12/28/18 16:47 Freq: Status: Active Protocol: Document 01/01/19 09:51 LRN (Rec: 01/01/19 15:36 LRN [id number]) Manual Assessments Soft Tissue Assessment Soft Tissue Mobility Assessment Ankles: Swelling in the lateral R ankle inferiorly and anteriorly. Joint Mobility Assessment Joint Mobility Assessment Ankles: Normal PT-OP-J Posture/Palpation/Skin Start: 12/28/18 16:47 Freq: Status: Active Protocol: Document 01/01/19 09:51 LRN (Rec: 01/01/19 15:36 LRN [id number]) Posture Evaluation Comments Posture Comments Standing: Decreased plantar arch on R with RLE held in mild ER. Valgus of knee bilaterally. R shoulder and scapular are low. Head is tilted left. Increased Lordosis and Dowagers hump. Palpation Assessment Location R ankle Palpation Location Lateral R ankle Palpation Findings Edema Tenderness Palpation Details Tenderness in the Anterior Talofibular ligament and Tibiofibular ligament. PT-OP-K Range of Motion Start: 12/28/18 16:47 Freq: Status: Active Protocol: Document 01/01/19 09:51 LRN (Rec: 01/01/19 15:36 LRN [id number]) Knee Goniometric Range of Motion Knee Measured in Degrees Right Knee ROM WFL Yes Patient Position Sitting Left Knee ROM WFL Yes Patient Position Sitting Ankle and Foot Goniometric Range of Motion Ankle and Foot Measured in Degrees Right Active Testing Position Supine Dorsiflexion with Knee Extended 5 Plantarflexion 48 Inversion 31 Eversion 12 Left Active Ankle/Foot ROM WFL Yes Dorsiflexion with Knee Extended 7 Plantarflexion 52 Inversion 40 Eversion 12 PT-OP-M Strength Start: 12/28/18 16:47 Freq: Status: Active Protocol: Document 01/01/19 09:51 LRN (Rec: 01/01/19 15:36 LRN [id number]) Knee Strength Knee Manual Muscle Testing Right Reason Not Measured WFL Left Reason Not Measured WFL Ankle/Foot Strength Ankle and Foot Manual Muscle Testing Right Reason Not Measured WFL Comments Toe strength is WNL. Left Reason Not Measured WFL Comments Toe strength is WNL. PT-OP-Q Treatments Start: 12/28/18 16:47 Freq: Status: Active Protocol: Document 01/16/19 09:54 LRN (Rec: 01/16/19 10:31 LRN [id number]) Cardio Equipment Recumbent Elliptical ([place]) Duration (Minutes) 8 Resistance 3 Seat Position 7 Gym Equipment Shuttle Recovery Unilateral Heel Raises Shuttle Recovery Platform Stable Reps/Time Resistance 32# & 50#, 15X each Bilateral Squats Details R Ankle tolerable stretch into DF Resistance 50 Shuttle Recovery Platform Stable Reps/Time 10x3 Therapeutic Exercises Sitting Exercises Ankle strengthening w/T-Band Sitting Exercise Name PF, DF, EV, IV Side right Resistance Lev 2 Equipment Used T-band Standing Exercises On MEGAN Standing Exercise Name Gastroc stretch Side bilateral Reps/Minutes 2' Comments stretch followed by active DF x 15x2 Neuro Re-Education Treatment Balance Activities SLS Details Wtihout shoes Surface Stable Comments After practice: 20 sec's right, 13 sec's left. Self-Care/Home Management Treatment Education Patient Education Home Exercise Program Other Education Discussed different shoe wear for exercise. Recommended pt cont to wear shoes she has with a lot of cushioning in the outer sole (to minimize pain at arthritic knees). Activities Self-Care/Home Management Activities Reviewed HEP. PT-OP-R Modalities Start: 12/28/18 16:47 Freq: Status: Active Protocol: Document 01/05/19 10:30 LRN (Rec: 01/05/19 11:14 LRN [id number]) Hot Pack/Cold Pack Treatment Cryocuff Location R ankle Patient Position Supine Treatment Duration (minutes) 10 PT-OP-T Assessment and Plan Start: 12/28/18 16:47 Freq: Status: Active Protocol: Document 01/16/19 09:54 LRN (Rec: 01/16/19 10:31 LRN [id number]) Physical Therapy Assessment Goals Three Impairment Decreased balance (SLS: 15 sec 's left, 7 sec's right) Airport Representative Goal (LTG) Pt will be able to get in/out of the bathtub without fear of falling. LTG Duration Goal Met Two Impairment Pain w/walking, limiting baseline of walking 4-5 miles. Short Term Goal (STG) Pt will be able to walk without pain. STG Duration Goal Met Group Home Goal (LTG) Pt will be able to walk the 2 -3 miles and educated in progression to return to baseline (3-4 miles walking) activity level. LTG Duration Goal Met One Impairment Lacks Self care program. Airport Representative Goal (LTG) Pt will be independent in a self care HEP. LTG Duration Goal Met Progress Towards Goals Progress Comments Goal #1: MET. Independent with HEP. Goal #2: STG:MET. Ankle hurts only after walking if she walks too far. LTG: MET. Back to baseline walking. Goal #3: MET SLS 20 sec's R LE. Pt feels comfortable getting in/out of tub. Assessment Summary Assessment Pt has done well with therapy and appears to have returned to baseline function. She had no pain with standard stair ambulation and is independent with her HEP. Pt is ready for discharge to independent program. Physical Therapy Plan Frequency and Duration Plan of Care Start Date 01/01/19 Plan of Care End Date 03/05/19 Discharge Physical Therapy Discharge Reasons Goals Met Discharge Comments No futher therapy required. Thank you for your referral.
== END 2019-02-02 16:43 ==
LOC: PHYS 09:45
PROVIDERS: PCP Family Medicine; Visit Provider Family Medicine
DX: S82.891A Other fracture of right lower leg, initial encounter for closed fracture (principal); M19.90 Unspecified osteoarthritis, unspecified site
CPT/HCPCS: 97110; 97161; 97535

== ENCOUNTER → 2019-03-08 08:41 | Outpatient (CLI) | payer MEDICARE, BC, SELFPAY ==
[2019-03-08 09:25] LABS: Appearance Urine UA CLEAR; Bilirubin Urine UA NEGATIVE (NEGATIVE); Color Urine UA YELLOW; Glucose Urine UA NEGATIVE (Negative); Ketones Urine UA NEGATIVE (NEGATIVE); Leukocyte Esterase Urine UA NEGATIVE (NEGATIVE); Nitrite Urine UA NEGATIVE (Negative); Occult Blood Urine UA 2+ (Negative); Protein Urine UA NEGATIVE (Negative); Specific Gravity Urine UA 1.025 (1.000-1.035); Urobilinogen Urine UA 0.2 E.U./dL (0.2)
[2019-03-08 09:37] LABS: Add Manual Diff / Slide Review NO; Basophils Absolute Auto 0 /uL (0-100); Basophils Percent Auto 0.5 % (0-2); Eosinophils Absolute Auto 100 /uL (0-450); Eosinophils Percent Auto 1.1 % (2-4); Hematocrit 38.1 % (36-46); Hemoglobin 12.8 g/dL (12.0-16.0); Lymphocytes Absolute Auto 1800 /uL (1100-4500); Lymphocytes Percent Auto 32.9 % (25-40); Mean Corpuscular HGB Conc 33.7 % (30-36); Mean Corpuscular Hemoglobin 27.9 PG (26-34); Mean Corpuscular Volume 82.8 fL (80-100); Monocytes Absolute Auto 300 /uL (0-900); Monocytes Percent Auto 5.4 % (3-14); Neutrophils Absolute Auto 3300 /uL (1500-7000); Neutrophils Percent Auto 60.1 % (50-75); Platelet Count 238 X10^3/uL (150-400); Red Cell Distribution Width 13.5 % (11.6-14.8); White Blood Cell Count 5.5 X10^3/uL (4.5-11.0)
[2019-03-08 09:43] LABS: Alanine Aminotransferase 23 IU/L (9-52); Albumin 4.2 g/dL (3.5-5.0); Albumin Globulin Ratio 1.3 (1.0-2.8); Alkaline Phosphatase 96 U/L (38-126); Aspartate Aminotransferase 23 IU/L (14-36); BUN Creatinine Ratio 18.9 (6-22); Bilirubin Total 0.5 mg/dL (0.2-1.3); Blood Urea Nitrogen 17 mg/dL (7-17); Calcium 9.5 mg/dL (8.4-10.2); Carbon Dioxide 27 mmol/L (22-32); Chloride 104 mmol/L (98-107); Cholesterol 212 mg/dL (140-199); Estimated Glomerular Filt Rate > 60.0 mL/min (>60); Globulin 3.3 g/dL (1.7-4.1); Glucose 105 mg/dL (80-110); HDL Cholesterol 61 mg/dL (40-60); HEMOLYSIS < 15 (0-50); LDL Cholesterol Calculated 137 mg/dL (<100); Potassium 4.6 mmol/L (3.4-5.1); Sodium 138 mmol/L (137-145); Total Protein 7.5 g/dL (6.3-8.2); Triglycerides 71 mg/dL (35-150)
[2019-03-08 10:11] LABS: Hemoglobin A1C% w Est Avg Glu 5.6 % (4.0-6.0)
[2019-03-08 10:14] LABS: Thyroid Stimulating Hormone 0.79 uIU/mL (0.47-4.68)
[2019-03-08 10:17] LABS: Bacteria Urine Few (2-10); Culture Indicated Urine Cult Not Indicated; RBC Urine 0-1/HPF (0-5/HPF); Squamous Epithelial Cell Urine 0-1 /HPF (0-5/HPF); WBC Urine 0-1/HPF (0-5/HPF)
== END ==
PROVIDERS: PCP Family Medicine; Visit Provider Family Medicine
DX: R73.03 Prediabetes (principal); Z13.220 Encounter for screening for lipoid disorders; Z13.29 Encounter for screening for other suspected endocrine disorder
CPT/HCPCS: 36415; 80053; 80061; 81003; 81015; 83036; 84443; 85025

== ENCOUNTER → 2019-04-12 11:14 | Outpatient (CLI) | payer MEDICARE, BC, SELFPAY ==
[2019-04-12 12:13] LABS: Appearance Urine UA CLEAR; Bilirubin Urine UA NEGATIVE (NEGATIVE); Color Urine UA YELLOW; Glucose Urine UA NEGATIVE (Negative); Ketones Urine UA NEGATIVE (NEGATIVE); Leukocyte Esterase Urine UA TRACE (NEGATIVE); Nitrite Urine UA NEGATIVE (Negative); Occult Blood Urine UA 1+ (Negative); Protein Urine UA NEGATIVE (Negative); Urobilinogen Urine UA 0.2 E.U./dL (0.2)
[2019-04-12 12:29] LABS: Bacteria Urine Occasional (0-1); Culture Indicated Urine Specimen Cultured; RBC Urine 0-1/HPF (0-5/HPF); WBC Urine 0-1/HPF (0-5/HPF)
== END ==
PROVIDERS: PCP Family Medicine; Visit Provider Family Medicine
DX: R31.9 Hematuria, unspecified (principal)
CPT/HCPCS: 81003; 81015; 87086

== ENCOUNTER → 2019-04-26 07:40 | Outpatient (CLI) | payer MEDICARE, BC, SELFPAY ==
[2019-04-26 08:09] LABS: Appearance Urine UA CLEAR; Bilirubin Urine UA NEGATIVE (NEGATIVE); Color Urine UA YELLOW; Glucose Urine UA NEGATIVE (Negative); Ketones Urine UA NEGATIVE (NEGATIVE); Leukocyte Esterase Urine UA NEGATIVE (NEGATIVE); Nitrite Urine UA NEGATIVE (Negative); Occult Blood Urine UA 1+ (Negative); Protein Urine UA NEGATIVE (Negative); Urobilinogen Urine UA 0.2 E.U./dL (0.2)
[2019-04-26 08:51] LABS: Bacteria Urine Occasional (0-1); Culture Indicated Urine Cult Not Indicated; RBC Urine 0-1/HPF (0-5/HPF); WBC Urine 0-1/HPF (0-5/HPF)
== END ==
PROVIDERS: Nurse Practitioner Family; PCP Family Medicine; Visit Provider Family Medicine
DX: R31.9 Hematuria, unspecified (principal)
CPT/HCPCS: 81001

== ENCOUNTER → 2019-05-22 11:58 | Outpatient (CLI) | payer MEDICARE, BC, SELFPAY ==
[2019-05-22 12:40] LABS: BUN Creatinine Ratio 17.5 (6-22); Blood Urea Nitrogen 14 mg/dL (7-17); Calcium 9.7 mg/dL (8.4-10.2); Carbon Dioxide 28 mmol/L (22-32); Chloride 102 mmol/L (98-107); Estimated Glomerular Filt Rate > 60.0 mL/min (>60); Glucose 144 mg/dL (80-110); HEMOLYSIS < 15 (0-50); Potassium 4.5 mmol/L (3.4-5.1); Sodium 140 mmol/L (137-145)
--- NOTE | 2019-05-22 13:14 | DI.CT.S_ITS ---
PROCEDURE: CT ABDOMEN PELVIS WO/W CON INDICATIONS: Hematuria, unspecified TECHNIQUE: Optional 5 mm thick noncontrast images acquired from the diaphragm to the symphysis pubis. After the administration of intravenous contrast, 5 mm thick images acquired from the diaphragm to the symphysis pubis after a 10-minute delay. 2 mm thick coronal and sagittal reformats were then performed of the kidneys and ureters. For radiation dose reduction, the following was used: automated exposure control, adjustment of mA and/or kV according to patient size. COMPARISON: None. FINDINGS: Image quality: Excellent. Lung bases: Lung bases are clear. Heart size is normal. Urinary system: Both kidneys are normal in size, without hydronephrosis or nephrolithiasis on pre-contrast images. No perinephric fat stranding. There is normal bilateral renal enhancement. Small left kidney superior pole simple cyst. Renal calyces appear normal in morphology when filled with contrast. Opacified portions of both ureters demonstrate normal caliber. Bladder wall thickness is normal. No calcified bladder stones. Other solid organs: Liver is normal in size and enhancement. Gallbladder is normal. Biliary system is non dilated. Pancreas enhances normally. Spleen is normal in size and enhancement. No adrenal nodules. Peritoneum and bowel: Moderate prominent sigmoid colon diverticulosis. Bowel loops demonstrate normal wall thickness and caliber. The appendix is normal. No free fluid or air. Minimal mesenteric haziness in the left abdomen, (3/88). A few more conspicuous mesenteric nodes. These findings are likely of no clinical significance but can be seen in sclerosing mesenteritis. Nodes and vessels: No retroperitoneal or mesenteric adenopathy by size criteria. Aorta and inferior vena cava are normal in size. Abdominal wall: No ventral hernias. Pelvis: Calcified fibroid at the uterine fundus. No pathologic free pelvic fluid. No inguinal hernias or adenopathy. Bones: No suspicious bony lesions. No vertebral body compression fractures. IMPRESSION: No renal or bladder mass seen. No filling defect in the ureters. Dictated by: Abhijit Ulloa M.D. on 05/22/2019 at 14:04 Approved by: Abhijit Ulloa M.D. on 05/22/2019 at 14:12
== END ==
PROVIDERS: PCP Family Medicine; Visit Provider Student in an Organized Health Care Education/Training Program
DX: R31.9 Hematuria, unspecified (principal); D25.9 Leiomyoma of uterus, unspecified
CPT/HCPCS: 36415; 74178; 80048; Q9967